=== PATIENT | male | born 1960 | race Caucasian/White ===

== ENCOUNTER 2017-11-09 10:01 | Emergency (ER) | payer OTHER ==
[~2017-11-09] VITALS: Ht 177.8 cm; Wt 79.5 kg
[2017-11-09 10:22] VITALS: PULSE 63; RESP 18; TEMP 98.1; O2SAT 98
[2017-11-09 10:24] VITALS: BP 132/75
--- NOTE | 2017-11-09 10:36 | PD ---
HPI Chief Complaint: Skin Problem Time Seen by Provider: 10:32 Travel History International Travel<30 days: No Contact w/Intl Traveler<30days: No Traveled to known affect area: No History of Present Illness HPI This is a 57-year-old male who presents for evaluation of a sunburn. 2 days ago [place] the [place] was [place] hours. He developed a sunburn on his face which is painful, burning, aggravated by falling asleep at the beach. Patient is complaining of swelling in his left leg. 42 days ago he had swelling around his left ankle and left hi region which has since mostly resolved but he reports associated pain with it. He denies any injury to his left leg. He denies any recent travel but does note that he is originally from [place] and travel down here 4 months ago. No history of DVT. No other current complaints. [facility] Social History Alcohol Use: No Tobacco Use: No Allergies-Medications (Allergen,Severity, Reaction): Coded Allergies: tetracycline (Verified Allergy, Unknown, 11/09/17) Reported Meds & Prescriptions Reported Meds & Active Scripts Active Bactroban Topical (Mupirocin) 22 Gm Cream 1 Applic TOPICAL BID 7 Days Review of Systems Except as stated in HPI: all other systems reviewed are Neg Physical Exam Narrative GENERAL: Well-nourished male no acute distress SKIN: Warm and dry. Sunburn noted to the face. There is some peeling on the cheeks. HEAD: Atraumatic. Normocephalic. EYES: Pupils equal and round. No scleral icterus. No injection or drainage. ENT: No nasal bleeding or discharge. Mucous membranes pink and moist. NECK: Trachea midline. No JVD. CARDIOVASCULAR: Regular rate and rhythm. No murmur appreciated. RESPIRATORY: No accessory muscle use. Clear to auscultation. Breath sounds equal bilaterally. MUSCULOSKELETAL: There is trace tibial edema to the lower extremities bilaterally. 2+ dorsalis pedis pulse bilaterally. NEUROLOGICAL: Awake and alert. No obvious cranial nerve deficits. Motor grossly within normal limits. Normal speech. Data Data Last Documented VS Vital Signs Date Time Temp Pulse Resp B/P (MAP) Pulse Ox O2 Delivery O2 Flow Rate FiO2 11/09/17 10:24 132/75 (94) 11/09/17 10:22 98.1 63 18 98 Orders Orders Us Leg Venous Doppler (11/09/17 10:33) MDM Medical Decision Making Medical Screen Exam Complete: Yes Emergency Medical Condition: Yes Medical Record Reviewed: Yes Differential Diagnosis Sunburn, irritant contact dermatitis, DVT, dependent edema Narrative Course The patient has a sunburn to his face which will be treated with Bactroban cream. He is complaining of a significant amount of swelling to his left lower extremity 2 days ago which has resolved now. Ultrasound ordered to rule out DVT and is negative. The patient is stable for discharge. Diagnosis Primary Impression: Sunburn Additional Instructions: Medication as prescribed. Avoid recurrent sunburns. Return for any emergent medical conditions. Med/Other Pt SpecificInfo: Prescription(s) given Scripts Mupirocin Topical (Bactroban Topical) 22 Gm Cream 1 APPLIC TOPICAL BID for Mgmt Bacterial Infection for 7 Days, #1 TUBE 0 Refills Prov: Eric Barnes MD 11/09/17 Disposition: 01 DISCHARGE HOME Condition: Stable Alfredo Olmedo Nov 09, 2017 10:36
[2017-11-09] MEDS ORDERED: MUPI2%T TOPICAL (11:14)
--- NOTE | 2017-11-09 11:27 | RADRPT ---
EXAM DATE/TIME: 11/09/2017 10:46 [facility] COMPARISON: No previous studies available for comparison. INDICATIONS : Swelling in left leg. MEDICAL HISTORY : Swelling in left leg. SURGICAL HISTORY : None. ENCOUNTER: Initial ACUITY: 2 day PAIN SCORE: 6/10 LOCATION: Left leg. TECHNIQUE: Venous ultrasound of the leg was performed from the inguinal ligament to the proximal calf. Real-pennie e, color Doppler and spectral tracing, compression and augmentation techniques were used. FINDINGS: There is normal compressibility of the deep venous system from the inguinal region to the proximal ca lf. No echogenic clot is seen in the lumen of the common femoral, femoral, popliteal, and posterior tibial veins. There is a normal response of the venous system to proximal and distal augmentation an d respiration. CONCLUSION: Negative for deep venous thrombosis. Henry Mae MD on November 09, 2017 at 11:25 Board Certified Radiologist. This report was verified electronically.
== END 2017-11-09 11:46 | disposition home or self-care (01) ==
LOC: NEPK 10:01
DX: L55.9 Sunburn, unspecified (principal); M79.89 Other specified soft tissue disorders
CPT/HCPCS: 93971